=== PATIENT | male | born 1970 | race Caucasian/White ===

== ENCOUNTER 2018-02-21 15:08 | Inpatient (IN) | payer BC ==
[2018-02-21] MEDS ORDERED: Ketorolac Tromethamine 30 MG/ML VIAL ONE ×2 (15:27→16:50)
[2018-02-21 15:37] LABS: #Eosinphils 0.1 thou/uL (0.0-0.7); #Lymphocytes 2.6 thou/uL (1.20-3.40); #Monocytes 0.6 thou/uL (0.11-0.59); #Neutrophils 4.8 thou/uL (1.40-6.50); %Basophils 0.5 % (0.0-1.0); %Eosinophils 1.1 % (0.0-10.0); %Lymphocytes 31.9 % (21.0-51.0); %Monocytes 6.9 % (0.0-10.0); %Neutrophils 59.6 % (42.0-75.0); Hemoglobin 14.5 g/dL (14.0-18.0); Mean Corpuscular HGB CONC 33.5 g/dL (32.0-36.0); Mean Corpuscular Hemoglobin 31.3 pg (27.0-31.0); Mean Corpuscular Volume 93.3 fl (80.0-94.0); Mean Platelet Volume 8.5 fL (7.4-10.4); Platelet Count 235 thou/uL (130-400); RBC Distribution Width 11.6 % (11.5-14.5); Red Blood Cell (RBC) Count 4.64 mill/uL (4.70-6.10)
[2018-02-21 15:57] LABS: ALT (SGPT) 18 U/L (8-55); AST (SGOT) 28 U/L (5-34); Albumin 4.7 g/dL (3.5-5.0); Alkaline Phosphatase 71 U/L (40-150); Anion Gap 11 mmol/L (10-20); BUN (Urea Nitrogen) 16 mg/dL (8.9-20.6); Bilirubin, Total 0.7 mg/dL (0.2-1.2); CK (CPK) 385 U/L (30-200); Calc. Creatinine Clearance 0 mL/min (70-130); Calcium 9.3 mg/dL (7.8-10.44); Carbon Dioxide 27 mmol/L (22-29); Chloride 106 mmol/L (98-107); Estimated GFR-MDRD 66; Globulin 2.4 g/dL (2.4-3.5); Glucose 121 mg/dL (70-105); Potassium 3.9 mmol/L (3.5-5.1); Protein, Total 7.1 g/dL (6.0-8.3); Sodium 140 mmol/L (136-145)
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
[2018-02-21] MEDS ORDERED: Acetaminophen 1,000 MG in Premix Bag 1 BAG IVPB ONE (17:00)
[2018-02-21] MEDS ORDERED: Ondansetron HCl/PF 4 MG/2 ML Vial IVP PRN (19:18)
[2018-02-21] MEDS ORDERED: Ondansetron ODT 4 MG TAB PO PRN (19:18)
[2018-02-21] MEDS ORDERED: Dextrose 50% Abboject 50 ML SYRINGE SLOW IVP PRN (19:18)
[2018-02-21] MEDS ORDERED: Dextrose 5% in Water 1,000 ML IV PRN (19:18)
[2018-02-21] MEDS ORDERED: Rib Fracture Protocol PO SCH (19:18)
[2018-02-21] MEDS ORDERED: Sodium Chloride 0.9% 1,000 ML IV SCH (19:30)
[2018-02-21] MEDS: traMADol HCl 50 MG TAB PO SCH (19:58)
[2018-02-21] MEDS: Senokot S 8.6-50 MG TAB PO SCH (19:59)
[2018-02-21] MEDS: Famotidine 20 MG TAB PO SCH (19:59)
[2018-02-21] MEDS: Gabapentin 300 MG CAP PO SCH (19:59)
[2018-02-21] MEDS: Acetaminophen 500 MG TAB PO SCH (19:59)
[2018-02-21 22:43] VITALS: BMI 25.0
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
[2018-02-21] MEDS: Ibuprofen 800 MG TAB PO SCH (23:37)
[2018-02-21] MEDS ORDERED: traMADol HCl 50 MG TAB PO SCH (23:59)
[2018-02-21] MEDS ORDERED: Acetaminophen 500 MG TAB PO SCH (23:59)
[2018-02-22] MEDS: Cyclobenzaprine 10 MG TAB PO PRN ×3 (00:35→17:13)
[2018-02-22] MEDS: Acetaminophen 500 MG TAB PO SCH ×4 (01:58→20:25)
[2018-02-22] MEDS: traMADol HCl 50 MG TAB PO SCH ×4 (02:00→20:25)
[2018-02-22 05:37] LABS: #Eosinphils 0.1 thou/uL (0.0-0.7); #Lymphocytes 1.5 thou/uL (1.20-3.40); #Monocytes 0.7 thou/uL (0.11-0.59); %Basophils 0.4 % (0.0-1.0); %Eosinophils 1.3 % (0.0-10.0); %Lymphocytes 23.4 % (21.0-51.0); %Neutrophils 63.9 % (42.0-75.0); Hemoglobin 12.7 g/dL (14.0-18.0); Mean Corpuscular HGB CONC 33.5 g/dL (32.0-36.0); Mean Corpuscular Hemoglobin 31.1 pg (27.0-31.0); Mean Corpuscular Volume 92.7 fl (80.0-94.0); Mean Platelet Volume 8.7 fL (7.4-10.4); Platelet Count 159 thou/uL (130-400); RBC Distribution Width 11.8 % (11.5-14.5); White Blood Cell (WBC) Count 6.3 thou/uL (4.8-10.8)
[2018-02-22 05:51] LABS: Anion Gap 12 mmol/L (10-20); BUN (Urea Nitrogen) 14 mg/dL (8.9-20.6); Calc. Creatinine Clearance 121 mL/min (70-130); Calcium 8.4 mg/dL (7.8-10.44); Carbon Dioxide 24 mmol/L (22-29); Chloride 106 mmol/L (98-107); Estimated GFR-MDRD 88; Glucose 84 mg/dL (70-105); Magnesium 2.2 mg/dL (1.6-2.6); Phosphorus 3.5 mg/dL (2.3-4.7); Potassium 3.7 mmol/L (3.5-5.1); Sodium 138 mmol/L (136-145)
[2018-02-22] MEDS: Ibuprofen 800 MG TAB PO SCH ×4 (06:15→23:45)
[2018-02-22] MEDS: Polyethylene Glycol 3350 17 GM Packet PO SCH (08:26)
[2018-02-22] MEDS: Senokot S 8.6-50 MG TAB PO SCH ×2 (08:26→20:25)
[2018-02-22] MEDS: Gabapentin 300 MG CAP PO SCH ×3 (08:26→20:25)
[2018-02-22] MEDS: Famotidine 20 MG TAB PO SCH ×2 (08:26→20:25)
--- NOTE | 2018-02-22 09:05 | RAD ---
CHEST 1 VIEW: HISTORY: Followup rib fracture. COMPARISON: 02/21/18. FINDINGS: Normal cardiac silhouette. Pulmonary vessels and hilum are normal. Costophrenic angles are clear. No consolidation or mass. There is a small left apical pneumothorax between the 3rd and 4th ribs. M inimal atelectasis in the left lung base. Limited evaluation of previously described posterior left rib fractures due to technique. IMPRESSION: Small left apical pneumothorax. Limited evaluation of the left rib fractures. Results of the study were discussed with Dr. Chaves 02/22/18 at 7:55 a.m. CODE CR POS: [facility]
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
[2018-02-23] MEDS: Acetaminophen 500 MG TAB PO SCH ×3 (01:50→14:27)
[2018-02-23] MEDS: traMADol HCl 50 MG TAB PO SCH ×3 (01:50→14:27)
[2018-02-23] MEDS: Ibuprofen 800 MG TAB PO SCH ×2 (05:24→12:10)
--- NOTE | 2018-02-23 08:08 | RAD ---
CHEST 1 VIEW: HISTORY: Pneumothorax. Followup. COMPARISON: 02/22/18. FINDINGS: Cardiac silhouette is magnified by projection. Pulmonary vasculature is unremarkable. Small left ap ical pneumothorax is not significantly changed from the previous exam. Left rib fractures are appare nt. Left basilar atelectasis is stable. Mediastinum remains midline. IMPRESSION: Small left apical pneumothorax and other findings are stable. POS: [facility]
[2018-02-23] MEDS: Gabapentin 300 MG CAP PO SCH ×2 (08:31→14:27)
[2018-02-23] MEDS: Famotidine 20 MG TAB PO SCH (08:31)
[2018-02-23] MEDS: Senokot S 8.6-50 MG TAB PO SCH (08:31)
[2018-02-23] MEDS: Polyethylene Glycol 3350 17 GM Packet PO SCH (08:33)
[2018-02-23] MEDS: Cyclobenzaprine 10 MG TAB PO PRN (10:09)
[2018-02-23] MEDS ORDERED: Magnesium Citrate 300 ML BOT PO SCH (10:15)
[2018-02-23 12:39] VITALS: BP 121/72; TEMP 97.7
[2018-02-23] MEDS ORDERED: Atorvastatin Calcium 10 MG TAB PO SCH (21:00)
== END 2018-02-23 15:45 | disposition home or self-care (01) | DRG 184 ==
LOC: ERS 15:08 → SURG A 17:05
PROVIDERS: ADMIT Surgery; ATTEND Surgery
DX: S22.42XA Multiple fractures of ribs, left side, initial encounter for closed fracture (principal); J93.9 Pneumothorax, unspecified; Z79.899 Other long term (current) drug therapy; E78.5 Hyperlipidemia, unspecified; V29.9XXA Motorcycle rider (driver) (passenger) injured in unspecified traffic accident, initial encounter
CPT/HCPCS: 36415; 71045; 80048; 80053; 82550; 83735; 84100; 85025; 93005; 94640; 96374; 96375; 96376; G0390; G8978-GP-CI; G8979-GP-CI; G8980-GP-CI; J0131; J1885; J7620

== ENCOUNTER 2018-03-06 11:00 | Outpatient (CLI) | payer BC ==
--- NOTE | 2018-03-06 12:54 | RAD ---
CHEST 2 VIEWS: HISTORY: Pneumothorax. Followup. COMPARISON: 02/23/18. FINDINGS: Cardiac silhouette and pulmonary vasculature are unremarkable. Mediastinum midline. Left posterior upper rib fractures are again demonstrated. Blunting of the left costophrenic angle has the appearan ce of a small amount of pleural fluid. Lungs are otherwise hyperinflated. IMPRESSION: 1. Interval resolution left apical pneumothorax. 2. Small residual left pleural fluid. 3. Chronic obstructive pulmonary disease. POS: [facility]
== END 2018-03-06 11:01 | disposition home or self-care (01) ==
LOC: RAD 11:00
PROVIDERS: ATTEND Physician Assistant
DX: S27.2XXA Traumatic hemopneumothorax, initial encounter (principal); S22.49XA Multiple fractures of ribs, unspecified side, initial encounter for closed fracture; J44.9 Chronic obstructive pulmonary disease, unspecified
CPT/HCPCS: 71046